=== PATIENT | male | born 1960 | race Caucasian/White ===

== ENCOUNTER → 2017-11-25 08:57 | Outpatient (CLI) | payer BC, SELFPAY ==
[2017-11-25 11:10] LABS: PSA,Total - Annual Screen 1.29 ng/mL (0.00-4.00)
== END ==
PROVIDERS: Family Provider Family Medicine; PCP Family Medicine; Visit Provider Urology
DX: Z12.5 Encounter for screening for malignant neoplasm of prostate (principal)
CPT/HCPCS: 36415; 84153; G0103

== ENCOUNTER → 2017-11-26 08:40 | Outpatient (CLI) | payer BC, SELFPAY ==
[2017-11-26 10:13] LABS: AST(SGOT) 41 U/L (15-37); Alanine Aminotransfer ALT/SGPT 75 U/L (16-61); Alkaline Phosphatase 96 U/L (45-117); Bilirubin, Direct 0.21 mg/dL (0.00-0.30); Cholesterol 149 mg/dL (200); High Density Lipoprotein 47 mg/dL; Triglycerides 86 mg/dL; Very Low Density Lipoprotein 17 mg/dL (5-40)
== END ==
PROVIDERS: Family Provider Family Medicine; PCP Family Medicine; Visit Provider Family Medicine
DX: E78.00 Pure hypercholesterolemia, unspecified (principal)
CPT/HCPCS: 36415; 80061; 80076

== ENCOUNTER → 2019-01-15 15:19 | Outpatient (CLI) | payer BC, SELFPAY ==
[2016-05-11 09:52] VITALS: BMI 30.9
[2019-01-15 16:24] LABS: Color, Urine Yellow (Yellow); Glucose, Dipstick Normal (Normal); Ketone-Dipstick Negative (Negative); Leukocyte Esterase-Dipstick Negative /ul (Negative); Nitrite-Dipstick Negative (Negative); Occult Blood-Urine Negative /ul (Negative); Protein-Dipstick Negative (Negative); Urine Bilirubin Dipstick Negative (Negative); Urine Clarity Clear (Clear); Urine Urobilinogen Normal (Normal)
[2019-01-15 16:37] LABS: Absolute Lymphocyte Count 1.46 X10^3/ul (0.83-4.51); Absolute Neutrophil Count 3.6 X10^3/uL (2.0-7.7); Basophil# 0.04 X10^3/uL; Basophil% 0.7 % (0-1); Eosinophils% 3.4 % (0-5); Hematocrit 46.7 % (40-54); Hemoglobin 16.6 g/dl (13.0-16.5); Lymphocyte # 1.46 X10^3/ul (4.0); Lymphocyte % 25.1 % (19-41); Mean Corp Hgb Conc 35.5 g/gl (32-36); Mean Corpuscular Hgb 31.6 pg (27.0-32.0); Mean Corpuscular Volume 88.8 fL (80-94); Mean Platelet Vol. 10.6 fl (6.2-12.0); Monocyte# 0.47 X10^3/uL; Monocyte% 8.1 % (0-10); Neutrophil # 3.64 X10^3/uL (2.7-7.7); Neutrophil % 62.5 % (47-70); Platelet Count 143 K/mm3 (150-450); RBC Distribution Width CV 12.6 % (11.6-14.6); RBC Distribution Width SD 40.3 fl (35.1-43.9); Red Blood Count 5.26 M/mm3 (4.6-6.2); White Blood Count 5.8 K/mm3 (4.4-11.0)
[2019-01-15 16:46] LABS: POSITIVE COUNT NO; POSITIVE DIFFERENTIAL NO; POSITIVE MORPHOLOGY NO
[2019-01-15 16:52] LABS: ALB/GLOB Ratio 1.3 RATIO (0.9-2.4); AST(SGOT) 45 U/L (15-37); Alanine Aminotransfer ALT/SGPT 76 U/L (16-61); Alkaline Phosphatase 84 U/L (45-117); Anion Gap 8 (5-15); BUN 17 mg/dL (7-18); BUN/Creat Ratio 22.3 RATIO (10-20); Calcium,Total 8.8 mg/dL (8.5-10.1); Chloride 107 mmol/L (98-107); Cholesterol 232 mg/dL (200); Creatinine, Serum 0.76 mg/dL (0.70-1.30); EST Glomerular Filtration Rate 111 mL/min (>60); Est Glom Filt Rate - Afr Amer 135 mL/min (>60); Glucose 81 mg/dL (74-106); High Density Lipoprotein 56 mg/dL; PSA,Total - Annual Screen 1.47 ng/mL (0.00-4.00); Potassium 3.9 mmol/L (3.5-5.1); Sodium Level 141 mmol/L (136-145); Triglycerides 92 mg/dL; Very Low Density Lipoprotein 18 mg/dL (5-40)
== END ==
PROVIDERS: Family Provider Family Medicine; PCP Family Medicine
DX: Z00.00 Encounter for general adult medical examination without abnormal findings (principal); E78.00 Pure hypercholesterolemia, unspecified; Z12.5 Encounter for screening for malignant neoplasm of prostate
CPT/HCPCS: 36415; 80053; 80061; 81002; 84153; 85025; G0103

== ENCOUNTER 2019-07-15 07:14 | Emergency (ER) | payer BC, SELFPAY ==
[2019-07-09 08:09] VITALS: BMI 29.0
[2019-07-15 07:15] VITALS: BP 152/90; PULSE 86; RESP 18; TEMP 36.6; O2SAT 94; BMI 30.9
--- NOTE | 2019-07-15 07:41 | EKG12_ITS ---
Test Reason : COUGH Blood Pressure : / mmHG Vent. Rate : 074 BPM Atrial Rate : 074 BPM P-R Int : 146 ms QRS Dur : 094 ms QT Int : 400 ms P-R-T Axes : 035 026 022 degrees QTc Int : 444 ms Normal sinus rhythm Normal ECG Confirmed by PAL ENNIS, BLAYNE ([id number]), news copy editor TRENT OLEA ([id number]) on 07/16/2019 10:34:37 AM Referred By: TONIE Confirmed By:JERAD AGUILLON MD
--- NOTE | 2019-07-15 07:41 | RAD_ITS ---
STUDY: X-RAY CHEST REASON FOR EXAM: Male, 59 years old. COUGH X 2 WKS. BOTH PRODUCTIVE/NON PRODUCTIVE TECHNIQUE: PA and lateral views of the chest. COMPARISON: Comparison is made with prior study dated April 26, 2016. FINDINGS: EKG electrodes are seen. Findings suggestive of an early left lower lobe infiltrate. There is no demonstrated pleural abnormality. Normal size heart. Normal mediastinum and gina. Normal visualized pulmonary arteries. There is atherosclerotic tortuosity of the aortic arch and descending thoracic aorta. There are diffuse degenerative changes of the visualized thoracic spine. Normal visualized ribs, clavicles, and shoulders. There is no demonstrated abnormality of the visualized soft tissue structures of the upper abdomen. RAD/Chest PA and Lateral IMPRESSION: Findings suggestive of an early left lower lobe infiltrate. Electronically Signed: Rashi Santos, at 9:01 EST , Service support ,
--- NOTE | 2019-07-15 07:43 | ED.VIS.FLU ---
History of Present Illness Chief Complaint: Cough Informant: Patient Onset: Weeks Context: Gradual Onset Timing: Intermittent Quality: Negative for: Dyspnea on exertion, Orthopnea, PND, Wheezing Worsened by: Coughing Relieved by: Nothing Associated Symptoms: Cough, Rhinorrhea. Negative for: Chills, Ear pain, Fever, Sore throat Chest Pain: None Narrative: Patient is a 59-year-old male but denies any past medical history presenting after severe episodes of coughing. Patient's had a viral illness/ respiratory infection for the past 2 weeks. He seen in urgent care 5 days ago and started on azithromycin and Medrol Dosepak for likely bronchitis. He states he has been having worsening episodes of coughing fits. He has severe coughing fits that become so bad that he actually passes out. Patient states he will pass out for couple seconds and then come to again. After he passes out he feels better. He denies any wheezing or shortness of breath. When he is coughing severely he feels like he cannot breathe. He denies any chest pain. He denies any fever or chills. He denies any lightheadedness or dizziness. Denies any abdominal or symptoms. He notes he has had 2 other episodes similar to this in the past 10 years associated with bronchitis. It appears that patient has had 2 admissions and a cardiac catheterization for evaluation of this. All work-up is been normal. Cardiac catheterization on 05/14/16 was grossly normal. Past Medical History - Allergies and Home Meds Allergies/Adverse Reactions: Allergies No Known Allergies Allergy (Verified 07/15/19 07:17) Primary Care Physician: Jozef Pereira MD [Primary Care Provider] - Past Medical History: None Surgical History: noncontributory Lives: Spouse/ Significant Other Smoking Status: Never smoker Review of Systems General: Denies: Chills, Fever, Sweats Eyes: Denies: Visual changes - bilaterally, Blurred Vision - bilaterally ENT: Reports: Rhinorrhea. Denies: Bilateral ear pain, Sore throat Cardiovascular: Denies: Chest pain, Palpitations Respiratory: Reports: Cough. Denies: Dyspnea, Dyspnea on exertion Gastrointestinal: Denies: Abdominal pain, Nausea, Vomiting, Diarrhea, Melena, Hematochezia Genitourinary: Denies: Dysuria, Hematuria, Frequency Musculoskeletal: Denies: Myalgias, Arthralgias Skin: Denies: Rash Neurological: Denies: Headache, Weakness, Numbness Physical Exam Vital Signs/Narrative: Vital Signs Temp Pulse Resp BP Pulse Ox 07/15/19 07:15 98 F 86 18 152/90 H 94 Inital Vital Signs reviewed: Yes General: Well nourished, Well developed Head: Normocephalic, Atraumatic Eyes: Perrl, EOMI ENT: Moist mucous membranes, No rhinorrhea, TM's clear. Negative for: Sinus tenderness Neck: Supple, Nontender Cardiovascular: Regular rate, Regular rhythm, No murmurs Respiratory: No distress, CTA bilaterally, No Stridor, Chest nontender Abdomen: Soft, Nontender, Nondistended, Normal bowel sounds Back: Nontender, Normal Inspection Extremities: Nontender, No edema Skin: Normal color, No rash Neurological: Alert, Oriented x3, Cranial nerves II-XII grossly intact, Normal Strength, Normal Sensation Psychological: Normal affect Diagnostic/Tx/Re-eval Chest X-Ray - ED: 2 View, Read by ED Physician, Read by Radiologist, Left Infiltrate Clinical Impression(s) from Imaging Studies Chest X-Ray 07/15/19 07:41 IMPRESSION: Findings suggestive of an early left lower lobe infiltrate. Electronically Signed: Rashi Tom, at 9:01 EST , Service support , Laboratory Data 07/15/19 07/15/19 08:10 08:10 WBC 8.9 RBC 5.04 Hgb 15.8 Hct 45.4 MCV 90.1 MCH 31.3 MCHC 34.8 RDW Std Deviation 41.5 RDW Coeff of Rikki 12.7 Plt Count 146 L MPV 9.5 Immature Gran % (Auto) 2.100 H Neut % (Auto) 72.4 H Lymph % (Auto) 13.8 L Morris % (Auto) 8.3 Eos % (Auto) 2.7 Baso % (Auto) 0.7 Absolute Neuts (auto) 6.5 Absolute Lymphs (auto) 1.23 Nucleated RBC % 0 Sodium 136 Potassium 3.5 Chloride 102 Carbon Dioxide 27.0 Anion Gap 7 BUN 19 H Creatinine 0.84 Estim Creat Clear Calc 102.09 Est GFR (MDRD) Af Amer 120 Est GFR (MDRD) Non-Af 99 BUN/Creatinine Ratio 22.5 H Glucose 146 H Calcium 8.3 L Troponin I < 0.015 - Rhythm Strip Rhythm Strip: Sinus Rhythm Rate: 74 Ectopy: None - EKG Initial EKG Interpretation: Sinus Rhythm, - - Normal sinus rhythm at a rate of 74 Normal intervals Normal axis Normal ST segments No change prior to prior EKG on 06/12/2015 - Medical Decision Making Patient is evaluated for cough. He has completed a course of azithromycin. He appears nontoxic in no acute distress. He states sometimes he coughs so much that he is blacking out. These episodes only last for couple seconds. Patient's vital signs are normal. He is not having episodes while in the emergency room. He states he feels better on oxygen. EKG, CBC, troponin and BMP are all normal. Chest x-ray does show a mild left lower lobe infiltrate. Patient's lung sounds are clear. With normal vital signs and normal white blood cell count I suspect the chest x-ray findings are actually improvement of a prior pneumonia. Patient will be given a hpug-[id number] course of Levaquin should he worsen. He will be discharged home with cough suppressants, Tessalon Perles as well as Robitussin-AC. I do not suspect a cardiogenic cause of these syncopal episodes. It sounds like he is having more laryngeal versus bronchial spasms that are causing this. In addition patient has had a cardiac catheterization and significant evaluation of prior episodes have all been normal. Patient is comfortable with discharge. He has appointment to see his PCP next week. Patient is counseled on signs and symptoms requiring return to the emergency room. Patient verbalizes agreement and understand this plan. Patient discharged home in stable and improved condition. ED Disposition - Plan for ED Patient: Disposition: Home or Assisted Living Diagnosis: Cough, Pneumonia, Situational syncope Instructions: PNEUMONIA (Adult) Prescriptions: levoFLOXacin tablet [Levaquin tablet] 750 mg PO DAILY #7 tab Prescription Printed Guaifenesin/Codeine [Robitussin AC] 10 ml PO Q6H PRN PRN #100 udc PRN Reason: Cough Prescription Printed Benzonatate [Tessalon Perle] 200 mg PO TID PRN PRN #20 cap PRN Reason: Cough Prescription Printed Referrals: Jozef Pereira MD [Primary Care Provider] - Additional Instructions: Your chest x-ray shows a small pneumonia on the left side. It is possible that this is healing pneumonia that was already treated with the antibiotics. If your symptoms worsen such as fever, cough or myalgias please start taking the antibiotics prescribed today. Otherwise throw away the prescription. Please follow-up with your primary care doctor. Return the emergency room if you have more worsening episodes of passing out. Return emergency room if you develop any chest pain or difficulty breathing.
[2019-07-15 08:18] LABS: Absolute Lymphocyte Count 1.23 X10^3/uL (0.83-4.51); Absolute Neutrophil Count 6.5 X10^3/uL (2.0-7.7); Basophil# 0.06 X10^3/uL; Basophil% 0.7 % (0-1); Eosinophil# 0.24 X10^3/uL; Eosinophils% 2.7 % (0-5); Hematocrit 45.4 % (40-54); Hemoglobin 15.8 g/dL (13.0-16.5); Lymphocyte # 1.23 X10^3/ul (4.0); Lymphocyte % 13.8 % (19-41); Mean Corp Hgb Conc 34.8 g/dL (32-36); Mean Corpuscular Hgb 31.3 pg (27.0-32.0); Mean Corpuscular Volume 90.1 fL (80-94); Mean Platelet Vol. 9.5 fl (6.2-12.0); Monocyte# 0.74 X10^3/uL; Monocyte% 8.3 % (0-10); NRBC Flagged by Analyzer 0 % (0-5); Neutrophil # 6.46 X10^3/uL (2.7-7.7); Neutrophil % 72.4 % (47-70); Platelet Count 146 K/mm3 (150-450); RBC Distribution Width CV 12.7 % (11.6-14.6); RBC Distribution Width SD 41.5 fl (35.1-43.9); Red Blood Count 5.04 M/mm3 (4.6-6.2); White Blood Count 8.9 K/mm3 (4.4-11.0)
[2019-07-15] MEDS: Benzonatate 100 MG Capsule 200 MG PO (08:18)
[2019-07-15 08:20] VITALS: O2SAT 97
[2019-07-15 08:39] LABS: Anion Gap 7 (5-15); BUN 19 mg/dL (7-18); BUN/Creat Ratio 22.5 RATIO (10-20); Calcium,Total 8.3 mg/dL (8.5-10.1); Chloride 102 mmol/L (98-107); Creatinine, Serum 0.84 mg/dL (0.70-1.30); EST Glomerular Filtration Rate 99 mL/min (>60); Est Glom Filt Rate - Afr Amer 120 mL/min (>60); Estimated Creatinine Clearance 102.09 ml/min; Glucose 146 mg/dL (74-106); Potassium 3.5 mmol/L (3.5-5.1); Sodium Level 136 mmol/L (136-145)
[2019-07-15 09:33] VITALS: BP 136/87; PULSE 77; RESP 18; O2SAT 97
== END 2019-07-15 09:34 | disposition home or self-care (01) ==
PROVIDERS: Emergency Provider Emergency Medicine; Family Provider Family Medicine; PCP Family Medicine
DX: J18.9 Pneumonia, unspecified organism (principal); R55 Syncope and collapse
CPT/HCPCS: 71046; 80048; 84484; 85025; 93005; 99284; A4216

== ENCOUNTER 2019-07-16 01:30 | Emergency (ER) | payer BC, SELFPAY ==
[2019-07-15 07:15] VITALS: BMI 30.9
[2019-07-16 01:30] VITALS: BP 153/99; PULSE 82; RESP 22; TEMP 36.8; O2SAT 96; BMI 31.6
[2019-07-16 01:50] VITALS: BP 153/99; PULSE 82; RESP 22; TEMP 36.8; O2SAT 96
--- NOTE | 2019-07-16 02:13 | ED.DCSUM_ITS ---
History of Present Illness Chief Complaint: Cough Narrative: Patient is a 59-year-old male who presents with cough and syncope. He has had about 10 days of a bronchitis-like illness with chest congestion and cough. He was seen at an urgent care and treated with azithromycin and prednisone which she did complete. He reports that he has had syncopal episodes during coughing fits. He has had this actually on multiple occasions previously and has undergone extensive previous work-up including hospitalizations and cardiac catheterization. He was seen yesterday morning and had EKG, laboratory studies, chest x-ray. This showed a left lower infiltrate. This was attributed to possibly a treated yet resolving pneumonia. He was prescribed Levaquin but advised on a xced-bzh-egy approach. He was also given Tessalon Perles and Robitussin-AC. About 8 hours ago he had another syncopal episode with coughing. He is concerned that he may not be getting enough oxygen. Past Medical History - Allergies and Home Meds Allergies/Adverse Reactions: Allergies No Known Allergies Allergy (Verified 07/15/19 07:17) Primary Care Physician: Jozef Pereira MD [Primary Care Provider] - Past Medical History: - - Denies, noncontributory Surgical History: noncontributory Smoking Status: Never smoker Review of Systems All systems negative except as indicated General: Denies: Fever ENT: Denies: Rhinorrhea, Sore throat Cardiovascular: Reports: - - Syncope. Denies: Chest pain Respiratory: Reports: Cough, - - Chest congestion Gastrointestinal: Denies: Nausea, Vomiting, Diarrhea Musculoskeletal: Denies: Myalgias Skin: Denies: Rash Neurological: Denies: Headache Physical Exam Vital Signs/Narrative: Vital Signs Temp Pulse Resp BP Pulse Ox 07/16/19 01:50 98.3 F 82 22 H 153/99 H 96 07/16/19 01:30 98.3 F 82 22 H 153/99 H 96 Inital Vital Signs reviewed: Yes General: Well nourished Head: Normocephalic Eyes: EOMI ENT: Moist mucous membranes Neck: Supple Cardiovascular: Regular rate, Regular rhythm Respiratory: No distress, CTA bilaterally Abdomen: Soft Skin: Normal color Neurological: Alert Psychological: Normal affect Diagnostic/Tx/Re-eval - Medical Decision Making Patient's vitals are unremarkable. He has normal pulse oximetry. This has been a longstanding recurrent issue for the patient and he just underwent evaluation for this yesterday morning. I do not believe any repeat or further diagnostic work-up is necessary. I advised that he go ahead and start the Levaquin presc ription that he was provided and continue with the cough syrup. At this point I explained I do not really have anything else to offer him as far as symptom management. I do not believe hospitalization warranted. He vocalized understanding and was reassured. Patient discharged. ED Disposition - Plan for ED Patient: Disposition: Home or Assisted Living Diagnosis: Pneumonia, Syncope Instructions: PNEUMONIA (Adult) Referrals: Jozef Pereira MD [Primary Care Provider] -
== END 2019-07-16 02:27 | disposition home or self-care (01) ==
LOC: ED 02:18
PROVIDERS: Emergency Provider Emergency Medicine; Family Provider Family Medicine; PCP Family Medicine
DX: J18.9 Pneumonia, unspecified organism (principal); R55 Syncope and collapse
CPT/HCPCS: 99282

== ENCOUNTER → 2019-07-24 08:06 | Outpatient (CLI) | payer BC, SELFPAY ==
[2019-07-16 01:30] VITALS: BMI 31.6
[2019-07-24 10:19] LABS: AST(SGOT) 37 U/L (15-37); Alanine Aminotransfer ALT/SGPT 96 U/L (16-61); Albumin, Serum 3.8 g/dL (3.2-5.0); Alkaline Phosphatase 99 U/L (45-117); Bilirubin, Direct 0.16 mg/dL (0.00-0.30); Cholesterol 231 mg/dL (200); Globulin 3.3 g/dL (2.2-4.2); High Density Lipoprotein 46 mg/dL; Protein, Total 7.1 g/dL (6.4-8.2); Triglycerides 175 mg/dL; Very Low Density Lipoprotein 35 mg/dL (5-40)
== END ==
PROVIDERS: PCP Family Medicine; Referring Provider Family Medicine; Visit Provider Family Medicine
DX: E78.00 Pure hypercholesterolemia, unspecified (principal)
CPT/HCPCS: 36415; 80061; 80076

== ENCOUNTER → 2019-12-09 15:19 | Outpatient (CLI) | payer BC, SELFPAY ==
[2019-08-16 12:53] VITALS: BMI 31.6
--- NOTE | 2019-12-09 15:34 | CT_ITS ---
STUDY: RIGHT REASON FOR EXAM: Male, 59 years old. Right knee varus deformity, planning for Jovani plasty. RADIATION DOSAGE (If Supplied By Facility): CTDIvol = ( 18.76 ) mGy, DLP = ( 1184.58 ) mGycm. Individualized dose optimization techniques were used for this CT.? TECHNIQUE: Multiple axial tomographic images of the right hip joint, knee joint and ankle joint were obtained. Coronal and sagittal reconstruction was obtained as well. COMPARISON: None. FINDINGS: The right hip joint is unremarkable. There is a minimal degree of joint space narrowing. Marked degree of joint space narrowing involving the medial compartment of the knee joint. 2 mm osteochondral defect is seen in the medial aspect of the medial tibial plateau. Minimal degenerative spurring is seen along the medial aspect of the medial tibial plateau. Small joint effusion. 2 mm cyst in the dome of the talus. Minimal degree of degenerative spurring seen along the anterior lateral aspect of the lateral portion of the distal tibia. CT/Extremity Lower without Contra IMPRESSION: Marked degree of osteoarthritis involving the medial compartment of the knee joint with a tiny osteochondral defect in the medial aspect of the medial tibial plateau. Small joint effusion. Electronically Signed: Rashi Santos, at 8:18 EDT , Service support ,
[2019-12-09 16:54] LABS: Absolute Lymphocyte Count 1.21 X10^3/uL (0.83-4.51); Absolute Neutrophil Count 3.4 X10^3/uL (2.0-7.7); Basophil# 0.05 X10^3/uL; Basophil% 0.9 % (0-1); Hematocrit 45.3 % (40-54); Hemoglobin 15.4 g/dL (13.0-16.5); Lymphocyte # 1.21 X10^3/ul (4.0); Lymphocyte % 21.1 % (19-41); Mean Corpuscular Volume 91.3 fL (80-94); Mean Platelet Vol. 10.9 fl (6.2-12.0); Monocyte% 12.2 % (0-10); NRBC Flagged by Analyzer 0 % (0-5); Neutrophil # 3.36 X10^3/uL (2.7-7.7); Neutrophil % 58.5 % (47-70); Platelet Count 153 K/mm3 (150-450); RBC Distribution Width CV 12.2 % (11.6-14.6); RBC Distribution Width SD 40.2 fl (35.1-43.9); Red Blood Count 4.96 M/mm3 (4.6-6.2); White Blood Count 5.7 K/mm3 (4.4-11.0)
[2019-12-09 17:25] LABS: Anion Gap 6 (5-15); BUN 21 mg/dL (7-18); BUN/Creat Ratio 26.7 RATIO (10-20); Calcium,Total 9.6 mg/dL (8.5-10.1); Chloride 107 mmol/L (98-107); Creatinine, Serum 0.79 mg/dL (0.70-1.30); EST Glomerular Filtration Rate 107 mL/min (>60); Est Glom Filt Rate - Afr Amer 130 mL/min (>60); Glucose 98 mg/dL (74-106); Potassium 3.9 mmol/L (3.5-5.1); Sodium Level 140 mmol/L (136-145)
== END ==
PROVIDERS: PCP Family Medicine; Referring Provider Specialist; Visit Provider Specialist
DX: Z01.818 Encounter for other preprocedural examination (principal); M21.161 Varus deformity, not elsewhere classified, right knee
CPT/HCPCS: 36415; 73700; 80048; 85025

== ENCOUNTER → 2019-12-11 08:37 | Outpatient (CLI) | payer BC, SELFPAY ==
[2019-08-16 12:53] VITALS: BMI 31.6
[2019-12-11 09:44] LABS: Albumin, Serum 3.8 g/dL (3.2-5.0)
== END ==
PROVIDERS: PCP Family Medicine; Referring Provider Specialist; Visit Provider Specialist
DX: Z01.812 Encounter for preprocedural laboratory examination (principal)
CPT/HCPCS: 36415; 82040

== ENCOUNTER → 2020-05-09 06:09 | Outpatient (CLI) | payer BC, SELFPAY ==
[2019-08-16 12:53] VITALS: BMI 31.6
[2020-05-09 07:21] LABS: Absolute Lymphocyte Count 1.31 X10^3/uL (0.83-4.51); Absolute Neutrophil Count 3.6 X10^3/uL (2.0-7.7); Basophil# 0.05 X10^3/uL; Basophil% 0.8 % (0-1); Eosinophils% 6.7 % (0-5); Hematocrit 49.5 % (40-54); Hemoglobin 16.8 g/dL (13.0-16.5); Lymphocyte # 1.31 X10^3/ul (4.0); Lymphocyte % 21.8 % (19-41); Mean Corp Hgb Conc 33.9 g/dL (32-36); Mean Corpuscular Hgb 30.5 pg (27.0-32.0); Mean Platelet Vol. 10.9 fl (6.2-12.0); Monocyte# 0.58 X10^3/uL; Monocyte% 9.7 % (0-10); NRBC Flagged by Analyzer 0 % (0-5); Neutrophil # 3.64 X10^3/uL (2.7-7.7); Neutrophil % 60.7 % (47-70); Platelet Count 170 K/mm3 (150-450); RBC Distribution Width CV 12.5 % (11.6-14.6); RBC Distribution Width SD 41.7 fl (35.1-43.9)
[2020-05-09 07:42] LABS: Color, Urine Yellow (Yellow); Glucose, Dipstick Normal (Normal); Ketone-Dipstick Negative (Negative); Leukocyte Esterase-Dipstick 25 /ul (Negative); Nitrite-Dipstick Negative (Negative); Occult Blood-Urine Negative /ul (Negative); Protein-Dipstick Negative (Negative); Specific Gravity, Urine 1.015 (1.002-1.030); Urine Bilirubin Dipstick Negative (Negative); Urine Clarity Sl. Cloudy (Clear); Urine Urobilinogen Normal (Normal)
[2020-05-09 08:07] LABS: ALB/GLOB Ratio 1.3 RATIO (0.9-2.4); AST(SGOT) 33 U/L (15-37); Alanine Aminotransfer ALT/SGPT 55 U/L (16-61); Alkaline Phosphatase 124 U/L (45-117); Anion Gap 5 (5-15); BUN 15 mg/dL (7-18); BUN/Creat Ratio 17.1 RATIO (10-20); Calcium,Total 9.2 mg/dL (8.5-10.1); Chloride 109 mmol/L (98-107); Cholesterol 172 mg/dL (200); Creatinine, Serum 0.88 mg/dL (0.70-1.30); EST Glomerular Filtration Rate 95 mL/min (>60); Est Glom Filt Rate - Afr Amer 115 mL/min (>60); Globulin 3.1 g/dL (2.2-4.2); Glucose 119 mg/dL (74-106); High Density Lipoprotein 52 mg/dL; PSA,Total - Annual Screen 1.72 ng/mL (0.00-4.00); Potassium 4.2 mmol/L (3.5-5.1); Protein, Total 7.1 g/dL (6.4-8.2); Sodium Level 141 mmol/L (136-145); Triglycerides 134 mg/dL; Very Low Density Lipoprotein 27 mg/dL (5-40)
== END ==
PROVIDERS: PCP Family Medicine; Referring Provider Family Medicine; Visit Provider Family Medicine
DX: Z00.00 Encounter for general adult medical examination without abnormal findings (principal); Z12.5 Encounter for screening for malignant neoplasm of prostate; E78.00 Pure hypercholesterolemia, unspecified
CPT/HCPCS: 36415; 80053; 80061; 81002; 84153; 85025; G0103

== ENCOUNTER → 2020-06-15 14:19 | Outpatient (CLI) | payer BC, SELFPAY ==
[2019-08-16 12:53] VITALS: BMI 31.6
--- NOTE | 2020-06-15 14:22 | RAD_ITS ---
STUDY: X-RAY - LUMBAR SPINE REASON FOR EXAM: Male, 60 years old. Low back pain, left side TECHNIQUE: 5 view(s) of the lumbar spine were obtained including oblique views. COMPARISON: None FINDINGS: Normal lumbar lordosis. There is no substantial scoliosis. There is a normal alignment of the vertebrae. Spondylolisthesis and marked degree of disc space narrowing and disc degeneration at the L5-S1 level. Disc space narrowing and spondylosis at the T12-L1 and L1-L2 levels. The soft tissue structures are unremarkable. RAD/L/S Spine Min 4 Views IMPRESSION: Degenerative changes of the spine, as detailed above. Electronically Signed: Rashi Santos, at 15:55 EST , Service support ,
== END ==
PROVIDERS: PCP Family Medicine; Referring Provider Family Medicine; Visit Provider Family Medicine
DX: M54.5 Low back pain (principal)
CPT/HCPCS: 72110

== ENCOUNTER 2021-01-24 05:30 | Inpatient (IN) | payer BC, SELFPAY ==
[2019-08-16 12:53] VITALS: BMI 31.6
[2020-12-21 08:31] VITALS: BMI 31.6
--- NOTE | 2021-01-16 08:33 | EKG12_ITS ---
Test Reason : PREOP Blood Pressure : / mmHG Vent. Rate : 067 BPM Atrial Rate : 067 BPM P-R Int : 136 ms QRS Dur : 094 ms QT Int : 394 ms P-R-T Axes : 047 045 033 degrees QTc Int : 416 ms Normal sinus rhythm Normal ECG Confirmed by HUONG ENNIS, CEDRIC ([id number]), fashion editor MARIANA MEZA ([id number]) on 01/17/2021 7:39:25 AM Referred By: Nima Wan Confirmed By:CEDRIC BORJA MD
--- NOTE | 2021-01-16 08:40 | RAD_ITS ---
STUDY: X-RAY CHEST REASON FOR EXAM: Male, 60 years old. PRE-OP TECHNIQUE: PA and lateral views of the chest. COMPARISON: Comparison is made with prior study dated 07/15/2019. FINDINGS: Hyperinflation. The lungs are clear. There is no demonstrated pleural abnormality. Normal size heart. Normal mediastinum and gina. Normal visualized pulmonary arteries. There is atherosclerotic tortuosity of the aortic arch and descending thoracic aorta. There are diffuse degenerative changes of the visualized thoracic spine. Normal visualized ribs, clavicles, and shoulders. There is no demonstrated abnormality of the visualized soft tissue structures of the upper abdomen. RAD/Chest PA and Lateral IMPRESSION: Hyperinflation. Electronically Signed: Rashi Santos MD at 9:07 EDT , Service support ,
[2021-01-16 09:48] LABS: Absolute Lymphocyte Count 1.16 X10^3/uL (0.83-4.51); Absolute Neutrophil Count 3.7 X10^3/uL (2.0-7.7); Basophil# 0.07 X10^3/uL; Basophil% 1.2 % (0-1); Eosinophil# 0.28 X10^3/uL; Eosinophils% 4.8 % (0-5); Hematocrit 48.3 % (40-54); Hemoglobin 16.6 g/dL (13.0-16.5); Lymphocyte # 1.16 X10^3/ul (0.83-4.51); Lymphocyte % 19.9 % (19-41); Mean Corp Hgb Conc 34.4 g/dL (32-36); Mean Corpuscular Hgb 30.7 pg (27.0-32.0); Mean Corpuscular Volume 89.3 fL (80-94); Mean Platelet Vol. 10.7 fl (6.2-12.0); Monocyte% 10.3 % (0-10); NRBC Flagged by Analyzer 0 % (0-5); Neutrophil % 63.5 % (47-70); Platelet Count 151 K/mm3 (150-450); RBC Distribution Width CV 12.6 % (11.6-14.6); Red Blood Count 5.41 M/mm3 (4.6-6.2); White Blood Count 5.8 K/mm3 (4.4-11.0)
[2021-01-16 09:56] LABS: International Normalized Ratio 1.1; Prothrombin Time (Protime)PT. 13.5 SECONDS (11.7-14.9)
[2021-01-16 09:57] LABS: Partial Thromboplast Time 29.6 Seconds (24.1-36.2)
[2021-01-16 10:14] LABS: Anion Gap 8 (5-15); BUN 17 mg/dL (7-18); BUN/Creat Ratio 21.5 RATIO (10-20); Calcium,Total 9.4 mg/dL (8.5-10.1); Chloride 105 mmol/L (98-107); Creatinine, Serum 0.79 mg/dL (0.70-1.30); EST Glomerular Filtration Rate 106 mL/min (>60); Est Glom Filt Rate - Afr Amer 128 mL/min (>60); Glucose 98 mg/dL (74-106); Sodium Level 138 mmol/L (136-145)
[2021-01-16 10:20] LABS: Hemoglobin A1c 5.2 % (3.8-5.6)
[2021-01-24] VITALS (12 sets, daily range): BP systolic 88–116; BP diastolic 62–82; PULSE 68–76; RESP 14–18; TEMP 36.1–36.6; O2SAT 94–100; BMI 28.4
[2021-01-24] MEDS: Lactated Ringers 1,000 ML 100 ML IV ×3 (06:25→18:36)
--- NOTE | 2021-01-24 07:30 | RAD_ITS ---
STUDY: X-RAY - LUMBAR SPINE REASON FOR EXAM: Male, 60 years old. L5-S1 ANTERIOR AND POSTERIOR FUSION WITH INSTRUMENTS TECHNIQUE: 1 view(s) of the lumbar spine were obtained. COMPARISON: None FINDINGS: Localization instrument is seen on the anterior aspect of the L4-L5 disc space level. A metallic screw is seen at the L5-S1 disc level anteriorly. RAD/Spine 1 View Any Level IMPRESSION: Metallic screw along the anterior aspect of the L5-S1 level. Metallic localization instrument is seen along the anterior aspect of the L4-L5 disc space. Electronically Signed: Rashi Santos MD at 15:24 EDT , Service support ,
[2021-01-24] MEDS: Cefazolin 2 GM in 0.9% Normal Saline 100 ML IV (07:46)
[2021-01-24] MEDS: Heparin 10,000 UNITS/10 ML Vial 10000 UNITS (08:25)
[2021-01-24] MEDS: THROMBIN (RECOMBINANT) 20,000 UNIT VIAL 20000 UNIT TOPICAL (08:26)
--- NOTE | 2021-01-24 10:05 | PCM.OPRPT ---
Problems Associated Problem List Diagnoses (1) DDD (degenerative disc disease): Report of Operation Date of Procedure: 01/24/21 Pre-Operative Diagnosis: Degenerative disc disease with spondylolisthesis Post-Operative Diagnosis: Pain Surgery/Procedure Performed:: 1. Anterior lumbar interbody fusion L5-S1 with placement of 12 mm cage and plate with 2 screws in L5 and 2 screws in S1 Type of Anesthesia: General Estimated Blood Loss (mL): 50 cc Description of Procedure: Surgeon: Dr. Wan co-surgeon Dr. Karlos Hays Operation: Patient brought to the operating room. Underwent appropriate timeout consent. Underwent general anesthesia. All the appropriate monitoring lines were placed. Was prepped and draped in a sterile fashion. We did a left lower quadrant incision and dissected onto the anterior fascia. We incised along this. Freed up just to the midline and then laterally past the rectus to the obliques. We then freed up the anterior fascia superior and inferior. We then got lateral to the rectus into the retroperitoneal plane and dissected down onto the iliopsoas. We then put in the Omni retractor. Then continued blunt dissection along the iliac artery and then vein. This allowed us to get onto the L5-S1 disc space. As we freed up along this middle sacral vessels were divided between clips and freed. Couple other smaller venous branches were divided between clips. Retractor was in good position and we confirmed under fluoroscopy that we are in the L5-S1 disc space and the midline. Patient then underwent extensive discectomy. Trial was placed at a 10 mm then 12 mm that appeared to be good position. Cage was then placed which was a 12 mm nicely into the disc space. Plate was placed on top of this with tumor 30 mm screws into L5 and 230 mm screws in S1. Confirmed good position on fluoroscopy. And confirm midline. We then put some Surgicel over the cage removed and released all the vessels. There is good hemostasis maintained. We then closed the anterior fascia with a running strata fix. Then 203 0 Vicryl's in layers. 4-0 Monocryl and Dermabond for the skin. Patient will then be flipped over and posteriorly were all be done separately. I was there for the entire part of the anterior component.
--- NOTE | 2021-01-24 10:08 | OP.PCM_ITS ---
Report of Operation Date of Procedure: 01/24/21 Pre-Operative Diagnosis: 1. Lumbar stenosis, [L5-S1 with spondylosis] 2. Lumbar degenerative disc disease, [L5-S1] Post-Operative Diagnosis: 1. Lumbar stenosis, [L5-S1 with spondylosis] 2. Lumbar degenerative disc disease, [L5-S1] Surgery/Procedure Performed:: 1. L5-S1 anterior lumbar interbody fusion. 2. Insertion of intervertebral biomechanical device x1. 3. Anterior plate fixation. 4. Structural allograft for spinal fusion. 5. Neuromonitoring bilateral upper and bilateral lower extremities. Description of Surgical Findings:: STATEMENT OF MEDICAL NECESSITY: The patient is a 60-year-old male with intractable back and leg pain. Image studies confirm above diagnosis. He has failed conservative treatment to include: medicine, therapy, and injections. The patient opted for operative intervention, understanding the risks to include, but not limited to infection, bleeding, damage to nerves, arteries, and veins, possibility of spinal fluid leak, nonunion, hardware failure, continued pain, need for further surgery, deep vein thrombosis, pulmonary embolism, heart attack, risk of stroke, or . DESCRIPTION OF THE PROCEDURE: The patient was identified in the preoperative holding area. There, he received preoperative IV antibiotics, Ancef, and was then transferred to the operative suite. Once in the operative suite, after general endotracheal anesthesia was established, the patient was positioned supine on the operating table. Arms were padded and taped across the chest wall. Abdomen was prepped and draped in the standard surgical fashion. Antony huggers w ere not turned on until the drapes were applied and sealed with Ioban. An oblique left of midline incision was made in the left lower quadrant of the abdomen and taken down to the level of the rectus fascia. This was opened and the retroperitoneum was entered lateral to the left rectus. The reflection was opened and the peritoneum was retracted medially. Great vessels were mobilized and retracted. The midline was marked with biplanar fluoroscopy. We then began at the L5-S1 level. A knife was utilized to perform an annulotomy. Endplate elevator, curettes, and pituitaries were utilized to remove disk material. Endplates were prepared with a rasp. Appropriate-sized intervertebral cage device measuring 12 mm in height, 8 degrees lordosis was packed with morselized cancellous allograft and then impacted into position, completing the anterior lumbar interbody fusion at the L5-S1 level. Appropriate-sized anterior plate measuring 27 mm was fixed into position with four 5 x 30 mm screws. The incision was thoroughly irrigated. The retractors were removed, and the great vessels were checked for pulses, and they were equal and strong bilaterally. The peritoneum was allowed to fall back into position. The fascia was closed with #1 Vicryl, subcutaneous with 2-0 Vicryl, and skin with 3-0 Monocryl. Sterile dressing was applied with 4x4s, ABD, and tape. The patient was deemed stable to proceed with the posterior portion of this case. Sponge instrument needle counts were correct. Neurophysiologic monitoring remained stable throughout the case. NIKITA Orellana was present during the entire duration of the case and necessary for critical parts including retraction and closure. Surgeon: Nima Wan associate professor of violin: Milana Macias Type of Anesthesia: General Specimen's removed: None Drains: None Estimated Blood Loss (mL): 50 Fluids Replaced: 1000 cc Grafts/Implants Used: Hilary Link. SPARC Complications None Admit VTE Documentation VTE Present on Admission: No VTE Mechan Device Prophylaxis: SCD's and Knee High NIXON Hose
--- NOTE | 2021-01-24 10:14 | PCM.OPRPT ---
Problems Associated Problem List Diagnoses (1) DDD (degenerative disc disease): (2) Lumbar spondylosis: (3) Lumbar stenosis: Report of Operation Date of Procedure: 01/24/21 Pre-Operative Diagnosis: 1. Lumbar stenosis,[ L5-S1 with spondylosis.] 2. Lumbar degenerative disc disease,[ L5-S1.] Post-Operative Diagnosis: 1. Lumbar stenosis,[ L5-S1 with spondylosis.] 2. Lumbar degenerative disc disease,[ L5-S1.] Surgery/Procedure Performed:: 1. L5-S1 posterolateral fusion. 2. Pedicle screw fixation. 3. Neuromonitoring bilateral upper and bilateral lower extremities. Description of Surgical Findings:: STATEMENT OF MEDICAL NECESSITY: Please see the anterior portion of this case. DESCRIPTION OF PROCEDURE: After the anterior lumbar interbody fusion was completed, the patient was deemed stable to proceed with the posterior portion of this case. The patient was transferred to the [facility] operating table in the prone position. All bony prominences were padded accordingly. The lumbar spine was prepped and draped in standard surgical fashion. Antony huggers were not turned on until drapes were placed and sealed with Ioban. Bilateral longitudinal incisions measuring 3 inches were made to the left and right of midline and taken down to the lumbodorsal fascia. This was divided and dissection taken down to the level of transverse process and the sacral ala. I then proceeded with pedicle screw fixation. Starting points were found at the junction of the superior articular process and transverse process and the sacral ala. Jamshidi needles were used for the starting points of the screws at L5 and S1. Live biplanar fluoroscopy was used to place the Jamshidi needles into the pedicles of L5 and S1 bilaterally. The trochars were removed from the Jamshidi needles and guidewires were inserted in their place. The Jamshidi needles were then removed and a tap was ran over the guidewires. Then cannulated pedicle screws were placed bilaterally at L5 and S1. 6 mm x 45 mm screws were placed bilaterally at L5, and 6.5 mm x 40 mm screws were placed bilaterally at S1. Screws were tested with intraoperative neurophysiologic monitoring and they tested within normal limits. Connecting rods were then applied completing the posterior fusion. The incisions were then thoroughly irrigated. Fascia was closed with #1 Vicryl, subcutaneous with 2-0 Vicryl, and skin with 2-0 nylon. Sterile dressings were applied with 4 x 4, ABD, and tape. Sponge, instrument, and needle counts were correct at the end of the case. The patient was extubated, taken to PACU without incident. Neurophysiologic monitoring was maintained at baseline during the entire duration of the case. NIKITA Orellana was present during the entire case and needed for critical portions including retraction as well as closure. Surgeon: Nima Wan correction officer supervisor: Milana Macias Type of Anesthesia: General Specimen's removed: None Drains: None Estimated Blood Loss (mL): 25 Fluids Replaced: 1000 cc Grafts/Implants Used: Core link. Complications None Admit VTE Documentation VTE Present on Admission: No VTE Mechan Device Prophylaxis: SCD's and Knee High NIXON Hose
[2021-01-24] MEDS: Bupivacaine 0.25% 30 ML Vial (13:19)
--- NOTE | 2021-01-24 13:48 | PN.ORTHO_ITS ---
Subjective Subjective The patient was seen and examined postoperatively in the PACU. He is resting comfortably. His pain is well controlled. He denies any complaints including numbness tingling or weakness. Objective Data Objective Data Vital Signs: Vital Signs Temp Pulse Resp BP Pulse Ox 97 F L 73 14 109/82 H 97 01/24/21 06:03 01/24/21 06:03 01/24/21 06:03 01/24/21 06:03 01/24/21 06:03 Oxygen Delivery Method Room Air Weight: 197 lb 15.602 oz Body Mass Index (BMI) 28.4 Intake & Output: Intake and Output for Last 24 Hours 01/22/21 01/23/21 01/24/21 23:59 23:59 23:59 Intake Total 110 / 110 Output Total 200 / 200 Balance -90 / -90 Lab / Micro Data Result Diagrams: 01/16/21 08:54 01/16/21 08:54 Physical Exam Const alert, oriented x3 and no apparent distress General Appearance: comfortable HEENT normocephalic and head/scalp atraumatic Head and Scalp: normocephalic and atraumatic Eyes EOMs intact bilaterally and conjunctivae normal Resp normal respiratory effort and normal air movement Cardio regular rate and regular rhythm Peripheral Pulses: pulses 2+ throughout GI soft to palpation, non-tender and non-distended Back/Spine Back/Spine Narrative: Abdominal and lumbar dressings are clean dry and intact Cervical Spine: cervical ROM normal Thoracic Spine / Upper Back: normal to inspection Lumbar Spine / Lower Back: normal to inspection Extremity normal to inspection, full ROM, normal capillary refill, no clubbing, cyanosis or edema and no calf tenderness Peripheral Pulses: Yes pulses 2+ throughout Skin no rashes or lesions noted General Skin Exam: no breakdown Neuro oriented x3, CN's II-XII intact bilaterally, moves all extremities, no focal mo tor deficits, no sensory deficits noted and deep tendon reflexes 2+ bilaterally Motor Exam: strength 5/5 throughout Assessment & Plan Assessment/Plan (1) Lumbar stenosis: PLAN: Status post L5-S1 ALIF/PSF Admit to floor, see orders N.p.o. Back brace at all times while out of bed (2) Lumbar spondylosis: (3) DDD (degenerative disc disease):
--- NOTE | 2021-01-24 13:52 | DS.PCM_ITS ---
Providers Date of Admission: 01/24/21 Primary Care Physician: Dr. Jozef Pereira MD Reason For Visit: LUMBAR ANTERIOR INTERBODY FUSION DECOMPRESSION L5- Diagnosis Discharge Diagnosis (1) Lumbar stenosis: Status: Acute Code(s): M48.061 - Spinal stenosis, lumbar region without neurogenic claudication (2) Lumbar spondylosis: Status: Acute Code(s): M47.816 - Spondylosis without myelopathy or radiculopathy, lumbar region (3) DDD (degenerative disc disease): Status: Acute Medications at Discharge Home Medications calcium carbonate-vitamin D3 1 tab PO BID 01/10/21 multivitamin 1 cap PO DAILY 01/10/21 hydrocodone-acetaminophen 1 tab PO Q4H PRN PRN 7 Days #60 tab 01/26/21 Hospital Course Summary of Care Provided Hospital Course: The patient underwent an L5-S1 360 fusion on 01/24/2021. He was subsequently admitted. The hospitalist was consulted for medical management. His pain was well controlled and he was mobilizing and progressing well with physical therapy. No significant medical issues were reported. Once his bowel sounds returned and he had a bowel movement, his diet was advanced as tolerated. He was subsequently discharged home to follow-up with Dr. Wan in 3 weeks for suture removal. Physical Exam Narrative Postop day 2. The patient was seen and examined. Status post L5-S1 360 fusion. He is doing very well. He is resting comfortably. His pain is controlled. He has no complaints including numbness tingling or weakness. He is tolerating his diet and mobilizing well. No significant medical issues reported. Const alert, oriented x3 and no apparent distress General Appearance: cooperative and comfortable HEENT head/scalp atraumatic Eyes EOMs intact bilaterally Neck full ROM and supple General: normal visual inspection Chest inspection of chest normal Resp normal respiratory effort and normal air movement Cardio regular rate and regular rhythm Peripheral Pulses: pulses 2+ throughout GI soft to palpation, non-tender and non-distended Back/Spine Back/Spine Narrative: Abdominal and lumbar dressings are clean dry and intact. Incisions are well approximated. Minimal erythema/ tenderness. No drainage or fluctuance. Cervical Spine: cervical ROM normal Thoracic Spine / Upper Back: normal to inspection and thoracic ROM normal Lumbar Spine / Lower Back: normal to inspection and lumbar ROM normal Extremity normal to inspection, full ROM, normal capillary refill, no clubbing, cyanosis or edema and no calf tenderness Peripheral Pulses: Yes pulses 2+ throughout Skin no rashes or lesions noted Neuro oriented x3, CN's II-XII intact bilaterally, moves all extremities, no focal motor deficits, no sensory deficits noted and deep tendon reflexes 2+ bilaterally Sensorium / Orientation: awake and alert Motor Exam: strength 5/5 throughout Weight / BMI Weight Weight: 197 lb 15.602 oz Body Mass Index (BMI) 28.4 ABG / Lab / Microbiology Data Result Diagrams: 01/16/21 08:54 01/16/21 08:54 Meaningful Use Info Meaningful Use Diagnoses (Choose all that apply): None applicable Discharge Plan Admission Admit Date/Time: 01/24/21 05:30 Attending Provider: Lucas Richardson Primary Care Provider: Jozef Pereira Consulting Providers: Rayna Miller Instructions Additional Instructions / Restrictions: 1. During your procedure, you received sedation through your IV. Please follow these instructions for the next 24 hours: Do not drive a motor vehicle, do not drink any alcoholic beverages, and do not sign any legal documents or make pe rsonal or business decisions. A responsible adult should stay with you at least 6 hours after the procedure. 2. Keep your surgical site/incision clean and the dressing dry and intact. You may sponge bathe, but no showering or sitting in a bathtub during your trial or for one week after the permanent implant. You may use an ice pack at the surgical site to reduce any swelling or discomfort. 3. Monitor the incision site for any signs or symptoms of infection. Watch for redness, excessive swelling or drainage, or continued pain at the incision site after 3 days. Contact your physician immediately for a fever, chills or a temperature of 101.5? F or greater. 4. Take your medication exactly as prescribed by your physician. Do not attempt to wean yourself off any of your medications even though your pain is improving. This process needs to be carefully monitored by your doctor. Take any antibio tics prescribed exactly as directed and until they are gone. 5. Avoid stretching, bending, pulling, twisting or any sudden movements. Do not bend or twist at the waist. Do not raise your arms above your head; however, you may brush your hair or scratch your head, but nothing higher than that. Any mo vements higher than that could cause your electrode wires to move from their current position. No not lie on your stomach. Do not bend at the waist to put your shoes on; you must lift your legs up to do this. 6. No lifting greater than 5 pounds. A gallon of milk weighs more than 5 pounds, so you may not lift this. Try to be careful. Any falls could dislodge the leads. 7. Do not operate a motor vehicle, equipment or a power tool while your stimulator is on. If you need to use any equipment, you must turn your stimulator off first. As a passenger in a motor vehicle, you may use your stimulator. 8. Do not have any manipulation done by a chiropractor or any other physician without first consulting with the physician who placed your spinal cord stimulator. 9. Without movement, you may note changes in the intensity of the stimulator. For example, you may notice a different stimulation when you are standing than when you are sitting or lying down. This is normal the first few weeks following the implant and will stabilize over time. 10. Please contact our office if you are even scheduled for a CT scan or an MRI. 11. Please call us if you have any questions, problems or concerns. Discharge Orders/Prescriptions Prescriptions: New hydrocodone-acetaminophen 5-325 mg tablet 1 tab PO Q4H PRN PRN (Reason: Pain) 7 Days Qty: 60 RF: 0 Continued multivitamin Capsule 1 cap PO DAILY RF: 0 calcium carbonate-vitamin D3 500 mg(1,250mg) -125 unit Tablet 1 tab PO BID RF: 0 Referrals / Follow Up: Nima Wan DO [STAFF PHYSICIAN] - Jozef Pereira MD [Primary Care Provider] - Disposition Disposition (needs filled in before D/C Order can be placed): Home, Self Care
[2021-01-24] MEDS: Acetaminophen 500 MG Tablet 1000 MG PO ×2 (15:34→21:09)
[2021-01-24] MEDS: Senna/Docusate Sodium 1 Tablet 2 TABLET PO ×2 (15:34→21:08)
[2021-01-24] MEDS: Morphine 4 MG/ML Syringe IV ×2 (15:35→18:30)
--- NOTE | 2021-01-24 15:51 | NURSING ---
scanner was not working in room. meds verified w/krystle molina rn
--- NOTE | 2021-01-24 17:10 | PCM.PN.HOSP ---
Subjective Subjective This is a 60-year-old white male who is postoperative from an L5-S1 anterior lumbar interbody fusion and posterior spinal fusion with instrumentation for lumbar stenosis at the same levels. He has a past medical history of Covid 19 in 05/2020 and osteoarthritis. It is documented he also has situational syncope, vocal cord dysfunction, and dyslipidemia but is on no medications other than a multivitamin, Kim, aspirin, and calcium replacement. Patient is currently getting up with physical therapy. He states he is in minimal pain/discomfort. He would like his Saldana catheter out as soon as possible. Objective Data Objective Data Vital Signs: Vital Signs Temp Pulse Resp BP Pulse Ox 97.5 F L 74 14 116/78 99 01/24/21 16:31 01/24/21 16:31 01/24/21 16:31 01/24/21 16:31 01/24/21 16:31 Oxygen Delivery Method Room Air Weight: 89.8 kg Body Mass Index (BMI) 28.4 Intake & Output: Intake and Output for Last 24 Hours 01/22/21 01/23/21 01/24/21 23:59 23:59 23:59 Intake Total 1110 / 1110 Output Total 275 / 275 Balance 835 / 835 Lab / Micro Data Result Diagrams: 01/16/21 08:54 01/16/21 08:54 Radiography Diagnostic Testing: Radiology Impression Spine X-Ray 01/24/21 07:30 IMPRESSION: Metallic screw along the anterior aspect of the L5-S1 level. Metallic localization instrument is seen along the anterior aspect of the L4-L5 disc space. Electronically Signed: Rashi Santos MD at 15:24 EDT , Service support , Physical Exam Const alert, oriented x3, no apparent distress, average body habitus and healthy appearing Constitutional Narrative: Middle-aged white male standing up and walking with physical therapy, brace in place, patient nontoxic and appears well, at bedside Exam Limitations: no limitations Resp normal respiratory effort, no retractions, no use of accessory muscles and clear to auscultation bilaterally Auscultation: Negative for crackles, rales, rhonchi or wheezes Cardio regular rate, regular rhythm, S1 normal heart sound, S2 normal heart sound, no murmurs, no rub, no gallops, no clicks and no JVD GI normal to inspection, nondistended, normoactive bowel sounds, soft to palpation, non-tender and non-distended Extremity normal to inspection, full ROM and no clubbing, cyanosis or edema Extremity Narrative: NIXON hose in place Neuro oriented x3 and moves all extremities Sensorium / Orientation: awake and alert Speech: speech normal Psych affect normal Psych Narrative: Very pleasant Assessment & Plan Assessment/Plan (1) Lumbar stenosis: PLAN: Lumbar stenosis status post L5-S1 anterior lumbar interbody fusion and posterior lateral fusion. -Care per primary team -Pain medication per primary team -Recommend bowel regimen -Continue senna/docusate -We will discontinue IV fluids once p.o. intake is adequate History of asthma -Add as needed albuterol DVT prophylaxis -We will leave chemical prophylaxis to primary team given recent surgery -SCDs
[2021-01-24] MEDS: 0.9% Saline Lock 10 ML Syringe IV (18:30)
[2021-01-24] MEDS: Calcium Carb/Vitamin D 1 TABLET Tablet PO (21:08)
[2021-01-25 02:51] VITALS: BP 128/70; PULSE 71; RESP 16; TEMP 36.7; O2SAT 97
[2021-01-25] MEDS: Lactated Ringers 1,000 ML 100 ML IV ×2 (04:12→14:14)
[2021-01-25] MEDS: Morphine 4 MG/ML Syringe IV ×4 (05:23→20:07)
[2021-01-25] MEDS: Acetaminophen 500 MG Tablet 1000 MG PO ×3 (05:25→21:40)
[2021-01-25 06:32] VITALS: BP 118/69; PULSE 73; RESP 16; TEMP 36.5; O2SAT 97
--- NOTE | 2021-01-25 07:53 | PCM.PN.ORT ---
Subjective Subjective The patient was seen and examined postoperative day 1 status post L5-S1 360 fusion. He is doing well. His pain is controlled. He is lying in bed resting comfortably. He has been out of bed to a chair all day yesterday and mobilizing to the bathroom without difficulty. He denies any complaints including numbness tingling weakness. Objective Data Objective Data Vital Signs: Vital Signs Temp Pulse Resp BP Pulse Ox 97.7 F L 73 16 118/69 97 01/25/21 06:32 01/25/21 06:32 01/25/21 06:32 01/25/21 06:32 01/25/21 06:32 Oxygen Delivery Method Room Air Weight: 197 lb 15.602 oz Body Mass Index (BMI) 28.4 Intake & Output: Intake and Output for Last 24 Hours 01/23/21 01/24/21 01/25/21 23:59 23:59 23:59 Intake Total 1655 / 1655 960 / 960 Output Total 675 / 875 650 / 650 Balance 980 / 780 310 / 310 Lab / Micro Data Result Diagrams: 01/16/21 08:54 01/16/21 08:54 Radiography Diagnostic Testing: Radiology Impression Spine X-Ray 01/24/21 07:30 IMPRESSION: Metallic screw along the anterior aspect of the L5-S1 level. Metallic localization instrument is seen along the anterior aspect of the L4-L5 disc space. Electronically Signed: Rashi Santos MD at 15:24 EDT , Service support , Physical Exam Const alert and oriented x3 HEENT head/scalp atraumatic Eyes EOMs intact bilaterally Neck full ROM and supple Resp normal respiratory effort and normal air movement Cardio regular rate Peripheral Pulses: pulses 2+ throughout GI soft to palpation, non-tender and non-distended Back/Spine Back/Spine Narrative: Abdominal and lumbar dressings are clean dry and intact Cervical Spine: cervical ROM normal Thoracic Spine / Upper Back: normal to inspection Lumbar Spine / Lower Back: normal to inspection Extremity normal to inspection, full ROM, normal capillary refill, no clubbing, cyanosis or edema and no calf tenderness Peripheral Pulses: Yes pulses 2+ throughout Skin General Skin Exam: no breakdown Neuro oriented x3, CN's II-XII intact bilaterally, moves all extremities, no focal motor deficits, no sensory deficits noted and deep tendon reflexes 2+ bilaterally Motor Exam: strength 5/5 throughout and muscle tone normal throughout Assessment & Plan Assessment/Plan (1) Lumbar stenosis: PLAN: Postoperative day 1 status post L5-S1 360 fusion Remove Saldana. Call Dr. Wan if any issues with patient urinating Continue pain control and mobilization Keep n.p.o. call Dr. Wan for diet orders (2) Lumbar spondylosis: (3) DDD (degenerative disc disease):
[2021-01-25 08:40] VITALS: BP 121/87; PULSE 80; RESP 16; TEMP 36.8; O2SAT 100
[2021-01-25] MEDS: Ondansetron 4 MG/2 ML Vial IV (08:57)
[2021-01-25] MEDS: Senna/Docusate Sodium 1 Tablet 2 TABLET PO ×2 (09:02→21:42)
--- NOTE | 2021-01-25 10:25 | CASEMGMT ---
RN CM Face to Face with patient for initial transition planning/care coordination assessment. RN CM introduced self and role at [facility]. Patient sitting in chair, alert and oriented, at bedside. Patient willing to participate in assessment and is able to answer all questions appropriately. Care providers, pharmacy, and demographics verified. Patient wishes to discharge home, denies need for home health at this time. Patient states he has no further needs or concerns at this time. CM to follow for discharge planning needs that may arise. PCP: Randall Specialists: leoncio Wan spinal0 Preferred Pharmacy: [facility] Insurance: [employer] Prescription Benefit: yes Living Will/HPOA: yes, Jennifer Navarro LNOK: Living Arrangements: Patient lives with in a 2 story home with bed and bath on first floor. Patient states he is independent at home. Transportation: self/ DME/HHC: Patient denies DME at home, will monitor for need for FWW pending progress with therapy. No previous HHC. Disposition Plan: Patient to discharge home with family support and follow-up plans in place. Rosalind AZEVEDO, RN, CM
[2021-01-25 15:28] VITALS: BP 101/50; PULSE 65; RESP 16; TEMP 36.8; O2SAT 98
--- NOTE | 2021-01-25 17:12 | PN.HOSP_ITS ---
Subjective Subjective Patient was seen and examined today, he denies any shortness of breath or chest discomfort, he has been passing flatus today. Patient denies any chronic medical problems except for osteoarthritis and degenerative joint disease of the lumbar spine. Objective Data Objective Data Vital Signs: Vital Signs Temp Pulse Resp BP Pulse Ox 98.2 F 80 16 121/87 H 100 01/25/21 08:40 01/25/21 08:40 01/25/21 08:40 01/25/21 08:40 01/25/21 08:40 Oxygen Delivery Method Room Air Weight: 89.8 kg Body Mass Index (BMI) 28.4 Intake & Output: Intake and Output for Last 24 Hours 01/23/21 01/24/21 01/25/21 23:59 23:59 23:59 Intake Total 1655 / 1655 1960 / 1960 Output Total 675 / 875 750 / 750 Balance 980 / 780 1210 / 1210 Lab / Micro Data Result Diagrams: 01/16/21 08:54 01/16/21 08:54 Physical Exam Const alert, oriented x3, no apparent distress and healthy appearing General Appearance: cooperative, well kempt and well developed Orientation / Consciousness: awake, oriented to person, oriented to place and oriented to time HEENT normocephalic and moist oral mucous membranes Eyes PERRL, EOMs intact bilaterally and conjunctivae normal Neck nuchal rigidity, supple, no JVD, thyroid normal and no carotid bruits General: trachea midline Resp normal respiratory effort and clear to auscultation bilaterally Auscultation: Negative for rales, rhonchi or wheezes Cardio regular rate, regular rhythm, no murmurs, no rub and no gallops GI normal to inspection, nondistended, normoactive bowel sounds, soft to palpation, non-tender and non-distended Extremity no clubbing, cyanosis or edema Skin no rashes or lesions noted and no jaundice General Skin Exam: no breakdown Neuro oriented x3, CN's II-XII intact bilaterally, no focal motor deficits and no sensory deficits noted Sensorium / Orientation: awake and alert Speech: speech normal Psych thought process normal and affect normal Assessment & Plan Assessment/Plan (1) Lumbar stenosis: PLAN: 1. Degenerative joint disease of the lumbar spine-postop day #1 L5- S1 posterior lateral fusion #2 spinal stenosis of the lumbar spine #3 osteoarthritis Patient has no acute medical issues at this time. Charges/Coding Visit Charges Inpatient E&M: 39274 Subs Hosp L2
[2021-01-25 20:50] VITALS: BP 123/65; PULSE 82; RESP 16; TEMP 36.8; O2SAT 100
[2021-01-25] MEDS: Calcium Carb/Vitamin D 1 TABLET Tablet PO (21:41)
[2021-01-25] MEDS: oxyCODONE 5 MG Tablet PO (21:44)
[2021-01-26] MEDS: Lactated Ringers 1,000 ML 100 ML IV (00:04)
[2021-01-26] MEDS: oxyCODONE 5 MG Tablet PO ×2 (02:01→08:51)
[2021-01-26 02:10] VITALS: BP 132/67; PULSE 76; RESP 16; TEMP 36.9; O2SAT 98
[2021-01-26] MEDS: Acetaminophen 500 MG Tablet 1000 MG PO (05:01)
[2021-01-26 08:09] VITALS: BP 106/69; PULSE 75; RESP 16; TEMP 36.8; O2SAT 98
[2021-01-26] MEDS: Ensure Surgery 237 ML LIQUID PO (08:51)
[2021-01-26] MEDS: Multivitamins,Therapeutic Tablet 1 TABLET PO (08:52)
[2021-01-26] MEDS: Calcium Carb/Vitamin D 1 TABLET Tablet PO (08:52)
--- NOTE | 2021-01-26 13:04 | PCM.PN.HOSP ---
Subjective Subjective Seen and examined. Patient pain is well controlled. Denies numbness, tingling, muscle weakness, urine retention. Ready to go home. Objective Data Objective Data Vital Signs: Vital Signs Temp Pulse Resp BP Pulse Ox 98.3 F 75 16 106/69 98 01/26/21 08:09 01/26/21 08:09 01/26/21 08:09 01/26/21 08:09 01/26/21 08:09 Oxygen Delivery Method Room Air Weight: 197 lb 15.602 oz Body Mass Index (BMI) 28.4 Intake & Output: Intake and Output for Last 24 Hours 01/24/21 01/25/21 01/26/21 23:59 23:59 23:59 Intake Total 1655 / 1655 2320 / 2320 1866.66 / 1866.66 Output Total 675 / 875 1100 / 2250 1950 / 1950 Balance 980 / 780 1220 / 70 -83.34 / -83.34 Lab / Micro Data Result Diagrams: 01/16/21 08:54 01/16/21 08:54 Physical Exam Narrative Physical exam General: Alert, Oriented x3, Cooperative HEENT: Atraumatic, PERRLA, EOMI, Normocephalic Oral: No Gingival or Mucosal Lesions/ Ulcerations Neck: Supple, No JVD, Negative Carotid Bruits Lungs: Air entry equal in bilateral lung bases. No crepitation/rhonchi. Cardiovascular: Regular rate, Regular Rhythm, Normal S1, Normal S2, No murmurs Abdomen: Bowel Sounds Present, Soft, Non Tender, Non-Distended : No renal angle tenderness. No suprapubic tenderness. Extremities: No edema, Capillary Refill Less than 3 Seconds Skin: No rashes, No breakdown Musculoskeletal/back: Surgical dressing is dry. Patient wearing lumbar support/brace. No Tenderness to Palpation of Joints or Extremities Neurological: Cranial nerves II-XII grossly intact, Deep Tendon Reflexes 2+/4 and Symmetrical. Gross sensation to touch is intact. Psych/Mental Status: Normal Affect, Appropriate. Assessment & Plan Assessment/Plan (1) Lumbar stenosis: (2) DDD (degenerative disc disease): PLAN: (1) Lumbar stenosis, L5-S1 with spondylosis, degenerative disc disease: Patient had posterior lateral fusion of L5-S1, pedicle screw fixation. Patient is wearing lumbar support/brace. No muscle weakness, paresthesia or tingling or numbness. No active medical issues. #2 Osteoarthritis of lumbar spine. Patient is being discharged home. Charges/Coding Visit Charges Inpatient E&M: 01209 Subs Hosp L2
== END 2021-01-26 10:10 | disposition home or self-care (01) | DRG 455 ==
LOC: ACINP 05:31 → MS3 01-25 07:44
PROVIDERS: Admitting Provider Orthopaedic Surgery; PCP Family Medicine; Referring Provider Orthopaedic Surgery; Visit Provider Internal Medicine
PROC: 0SG30A0 Fusion of Lumbosacral Joint with Interbody Fusion Device, Anterior Approach, Anterior Column, Open Approach (ICD-10-PCS; principal; 2021-01-24 07:00)
DX: M51.36 Other intervertebral disc degeneration, lumbar region (principal); M47.816 Spondylosis without myelopathy or radiculopathy, lumbar region; M48.061 Spinal stenosis, lumbar region without neurogenic claudication; E66.8 Other obesity; Z68.30 Body mass index [BMI] 30.0-30.9, adult; Z79.82 Long term (current) use of aspirin; Z79.899 Other long term (current) drug therapy; Z86.16 Personal history of COVID-19
CPT/HCPCS: 36415; 71046; 72020; 76000; 80048; 83036; 85025; 85610; 85730; 93005; 94762; 97162; 97530; 99251; C1713; J7120; A4216; G0463; J2405

== ENCOUNTER → 2021-03-08 13:45 | Outpatient (CLI) | payer BC, SELFPAY ==
--- NOTE | 2021-03-08 13:48 | VDLE_ITS ---
Reason For Study: Edema Procedure LEFT This is a venous duplex using B-mode, color GSV is normal. flow and spectral Doppler. CFV is compressible, spontaneous, phasic, Exam performed in department. competent, and demonstrates normal A preliminary report was called and/or faxed augmentation. to Dr. Wan. FV is compressible, spontaneous, phasic, competent and demonstrates normal augmentation. POP V is compressible, spontaneous, phasic, competent and demonstrates normal augmentation. T/P Trunk is compressible. PTV is compressible. LT PerV is compressible. Patient unable to tolerate compressions in the groin, relied on color doppler. VL/Venous Duplex US, Unilateral Interpretation Summary Deep veins of the left lower extremity are patent and compressible segmentally. There is no evidence of left lower extremity deep vein thrombosis. Valvular competence appears intac t within the proximal deep venous system on the left . The left great saphenous vein appears patent a nd compressible segmentally. Ordering Physician: Nima Wan Referring Physician: Jozef Pereira Performed By: Karen Arnold, ROSANNACS, RVT
== END ==
PROVIDERS: PCP Family Medicine; Referring Provider Orthopaedic Surgery; Visit Provider Orthopaedic Surgery
DX: R60.0 Localized edema (principal); M79.605 Pain in left leg
CPT/HCPCS: 93971

== ENCOUNTER → 2021-06-05 09:19 | Outpatient (CLI) | payer BC, SELFPAY ==
[2021-06-05 09:46] LABS: Absolute Lymphocyte Count 1.21 X10^3/uL (0.83-4.51); Absolute Neutrophil Count 3.8 X10^3/uL (2.0-7.7); Basophil# 0.07 X10^3/uL; Basophil% 1.2 % (0-1); Eosinophil# 0.26 X10^3/uL; Eosinophils% 4.4 % (0-5); Hemoglobin 17.3 g/dL (13.0-16.5); Lymphocyte # 1.21 X10^3/ul (0.83-4.51); Lymphocyte % 20.3 % (19-41); Mean Corp Hgb Conc 35.3 g/dL (32-36); Mean Corpuscular Hgb 31.6 pg (27.0-32.0); Mean Corpuscular Volume 89.6 fL (80-94); Mean Platelet Vol. 10.3 fl (6.2-12.0); Monocyte# 0.59 X10^3/uL; Monocyte% 9.9 % (0-10); NRBC Flagged by Analyzer 0 % (0-5); Neutrophil # 3.83 X10^3/uL (2.7-7.7); Platelet Count 171 K/mm3 (150-450); RBC Distribution Width CV 12.8 % (11.6-14.6); RBC Distribution Width SD 42.1 fl (35.1-43.9); Red Blood Count 5.47 M/mm3 (4.6-6.2)
[2021-06-05 10:22] LABS: ALB/GLOB Ratio 1.1 RATIO (0.9-2.4); AST(SGOT) 37 U/L (15-37); Alanine Aminotransfer ALT/SGPT 74 U/L (16-61); Alkaline Phosphatase 112 U/L (45-117); Anion Gap 5 (5-15); BUN 16 mg/dL (7-18); BUN/Creat Ratio 18.3 RATIO (10-20); Calcium,Total 9.3 mg/dL (8.5-10.1); Chloride 105 mmol/L (98-107); Cholesterol 223 mg/dL (200); Creatinine, Serum 0.87 mg/dL (0.70-1.30); EST Glomerular Filtration Rate 95 mL/min (>60); Est Glom Filt Rate - Afr Amer 115 mL/min (>60); Globulin 3.6 g/dL (2.2-4.2); Glucose 103 mg/dL (74-106); High Density Lipoprotein 52 mg/dL; PSA,Total - Annual Screen 1.23 ng/mL (0.00-4.00); Potassium 4.2 mmol/L (3.5-5.1); Protein, Total 7.6 g/dL (6.4-8.2); Sodium Level 139 mmol/L (136-145); Triglycerides 89 mg/dL; Very Low Density Lipoprotein 18 mg/dL (5-40)
== END ==
PROVIDERS: PCP Family Medicine; Referring Provider Family Medicine; Visit Provider Family Medicine
DX: Z00.00 Encounter for general adult medical examination without abnormal findings (principal); Z12.5 Encounter for screening for malignant neoplasm of prostate; E78.00 Pure hypercholesterolemia, unspecified
CPT/HCPCS: 36415; 80053; 80061; 84153; 85025; G0103

== ENCOUNTER → 2021-11-27 | Outpatient (CLI) | payer BC, SELFPAY ==
[2021-11-27 09:50] LABS: AST(SGOT) 31 U/L (15-37); Alanine Aminotransfer ALT/SGPT 47 U/L (16-61); Albumin, Serum 3.9 g/dL (3.2-5.0); Alkaline Phosphatase 95 U/L (45-117); Bilirubin, Direct 0.12 mg/dL (0.00-0.30); Cholesterol 205 mg/dL (200); Globulin 2.9 g/dL (2.2-4.2); High Density Lipoprotein 49 mg/dL; Protein, Total 6.8 g/dL (6.4-8.2); Triglycerides 121 mg/dL; Very Low Density Lipoprotein 24 mg/dL (5-40)
== END | disposition home or self-care (01) ==
LOC: LAB 08:57
PROVIDERS: PCP Family Medicine; Referring Provider Family Medicine; Visit Provider Family Medicine
DX: E78.00 Pure hypercholesterolemia, unspecified (principal)
CPT/HCPCS: 36415; 80061; 80076